=== PATIENT | female | born 1945 | race Caucasian/White ===

== ENCOUNTER 2021-03-01 00:21 | Emergency (ER) | payer OTHER ==
[2021-03-01 00:31] VITALS: PULSE 66; TEMP 98.7; BMI 32.7
[2021-03-01 00:59] VITALS: BP 156/67
== END 2021-03-01 01:33 | disposition home or self-care (01) ==
LOC: FER 00:21
DX: I10 Essential (primary) hypertension (principal)
CPT/HCPCS: 93005; 99284-25